=== PATIENT | male | born 1970 | race Caucasian/White ===

== ENCOUNTER → 2019-09-02 | Outpatient (CLI) | payer OTHER ==
[~2019-09-02] MED LIST: HYDR-3165 PO
== END | disposition home or self-care (01) ==
LOC: LAB 14:58
PROVIDERS: ATTEND Orthopaedic Surgery
DX: Z01.818 Encounter for other preprocedural examination (principal); Z11.59 Encounter for screening for other viral diseases; S83.242A Other tear of medial meniscus, current injury, left knee, initial encounter; X58.XXXA Exposure to other specified factors, initial encounter; Y93.89 Activity, other specified; Y92.89 Other specified places as the place of occurrence of the external cause; Y99.8 Other external cause status
CPT/HCPCS: C9803; U0003; 36415

== ENCOUNTER 2019-09-06 06:11 | Day surgery (SDC) | payer OTHER ==
[2019-09-06] MEDS ORDERED: BUPIVACAINE-EPI 0.5%-1:200000 MPF 30 ML VIAL. ONE (06:53)
[2019-09-06] MEDS ORDERED: PROPOFOL 10 MG/ML (20ML) VIAL. IV ONE ×2 (06:58→08:56)
[2019-09-06] MEDS ORDERED: LIDOCAINE 2% PF 5 ML VIAL. ONE (06:58)
[2019-09-06] MEDS ORDERED: MORPHINE SULFATE 2 MG/ML VIAL. IV PRN (07:00)
[2019-09-06] MEDS ORDERED: fentaNYL PF VIAL 100 MCG/2 ML VIAL IV PRN ×2 (07:00)
[2019-09-06] MEDS ORDERED: ONDANSETRON PF 4 MG/2 ML VIAL. IV PRN (07:00)
[2019-09-06] MEDS ORDERED: PROCHLORPERAZINE 10 MG/2 ML VIAL. IV PRN (07:00)
[2019-09-06] MEDS ORDERED: HYDROmorphone 2 MG/ML VIAL IV PRN (07:00)
[2019-09-06] MEDS ORDERED: IV RINGERS,LACTATED 1000ML 1,000 ML IV SCH (07:00)
[2019-09-06] MEDS ORDERED: DEXAMETHASONE SOD PHOS 4 MG/ML VIAL ONE ×2 (07:04→08:08)
[2019-09-06] MEDS ORDERED: fentaNYL PF VIAL 100 MCG/2 ML VIAL ONE (07:04)
[2019-09-06] MEDS ORDERED: MIDAZOLAM HCL/PF 2 MG/2 ML VIAL. ONE (07:04)
[2019-09-06] MEDS ORDERED: ONDANSETRON PF 4 MG/2 ML VIAL. ONE (07:04)
[2019-09-06 07:14] LABS: BASO # 0.1 x10^3/uL (0.0-0.2); BASO % 1 % (0-3); EOS # 0.2 x10^3/uL (0.0-0.7); EOS % 4 % (0-3); HEMATOCRIT 40.2 % (39.0-53.0); HEMOGLOBIN 13.5 g/dL (13.0-17.5); LYMPH # 1.4 x10^3/uL (1.0-4.8); LYMPH % 24 % (24-48); MEAN CORPUSCULAR HEMOGLOBIN 31 pg (25-35); MEAN CORPUSCULAR HGB CONC 34 g/dL (31-37); MEAN CORPUSCULAR VOLUME 91 fL (79-100); MONO # 0.5 x10^3/uL (0.0-1.1); MONO % 9 % (0-9); NEUT # 3.6 x10^3/uL (1.8-7.7); NEUT % 63 % (31-73); PLATELET COUNT 240 x10^3/uL (140-400); RED CELL DISTRIBUTION WIDTH 13.8 % (11.5-14.5); WHITE BLOOD COUNT 5.8 x10^3/uL (4.0-11.0)
[2019-09-06] MEDS ORDERED: HYDR-3165 PO (07:16)
--- NOTE | 2019-09-06 07:18 | DISCH ---
DISCHARGE INSTRUCTIONS Condition on Discharge Condition on Discharge: Stable Activity After Discharge Activity Instructions for Disc: Other, see below (No bending past 90 degrees, twisting pivoting or uneven ground) Weight Bearing Status after Di: As tolerated Diet after Discharge Diet after Discharge: Regular Wound Incision Care Wound/Incision Care: Ice to area for comfort, Change dressing (Remove dressing after 2 days may then shower no soaking until sutures removed) Contacting the DRBeulah after DC Call your doctor for: Concerns you may have Follow-Up Follow up with: Dr. Ramirez 1 week LUCILA RAMIREZ MD Sep 06, 2019 07:18
[2019-09-06 07:27] LABS: CALCIUM 8.6 mg/dL (8.5-10.1); CREATININE 1.1 mg/dL (0.7-1.3); GFR 72.1; POTASSIUM 3.6 mmol/L (3.5-5.1)
[2019-09-06] MEDS ORDERED: ceFAZolin 2GM PREMIX 2 GM/50 ML BAG IV ONE (08:00)
[2019-09-06] MEDS ORDERED: SEVOFLURANE 61 TO 120 MINUTES. IH ONE (08:08)
[2019-09-06] MEDS ORDERED: HYDROcodone/APAP 7.5/325MG 1 TAB TABLET PO ONE (09:00)
[2019-09-06 09:35] VITALS: BP 119/67
--- NOTE | 2019-09-06 17:26 | PDOC4 ---
Operative Note Operative Note Date of surgery: 09/06/2019 Preoperative diagnosis: Medial meniscus tear left knee Postoperative diagnosis: Same with radial tear medial aspect more complex orientation peripherally, medial parapatellar plica Operative procedure: Left knee arthroscopy medial meniscus repair and excision medial parapatellar plica, and injection platelet rich plasma Surgeon: Ashley Anesthesia: General Estimated blood loss: 60 cc (blood draw for platelet rich plasma) Complications: None Operative indications: Please see my orthopedic clinic note for detailed operative indications and note that he has a tear of the medial meniscus otherwise is very active in [employer] and maintains fitness in terms of cycling and other activities and we had talked about preservation of his much as possible of the remaining viable meniscus and the lack of blood supply to the inner rim. 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 All his questions were answered and he does wish to proceed with surgical evaluation and treatment. Operative text: Patient was identified procedure verified patient placed in the supine position on the operating table. After adequate amounts of general anesthesia were administered the left lower extremity was prepped and draped in standard sterile fashion with a thigh tourniquet. After timeout was performed patient procedure identified and verified the left lower extremity was e xsanguinated by Esmarch bandage tourniquet inflated to 300 mmHg a lateral portal was established and a medial portal established using spinal needle localization and the knee joint was systematically examined. He had good patellofemoral tracking and minimal chondromalacia of the patella itself but grade III chondromalacia of the trochlea which did not require debridement and a medial parapatellar plica was noted no loose bodies noted in the gutters or suprapatellar pouch area. He did have a radial tear of the junction of the body and posterior horn of the medial meniscus that extended more to a complex orientation of the tear as it became peripheral. ACL was probed and found to be intact as well as the lateral meniscus. The medial parapatellar plica was excised and the inner rim of the meniscus in the white white zone was radius to more stable viable tissue and the outer joint capsule was trephinated to improve bleeding to the area. Blood was drawn for platelet rich plasma spin down total of 60 cc and a total of 2 jugular stitch meniscal repair devices were placed across the peripheral complex tear and excellent apposition was obtained. The joint was drained of arthroscopic fluid and platelet rich plasma mixture was injected underneath the tendon repair. The superficial portal area only was injected with some half percent plain Marcaine portals closed with nylon suture sterile dressings were applied followed by an Lee wrap toes were noted be warm pink following deflation of the tourniquet patient was returned to recovery room in stable condition having tolerated procedure well LUCILA KIRBY MD Sep 06, 2019 17:25
== END 2019-09-06 10:35 | disposition home or self-care (01) ==
LOC: SURG 06:11
PROVIDERS: ATTEND Orthopaedic Surgery
DX: S83.242A Other tear of medial meniscus, current injury, left knee, initial encounter (principal); M22.42 Chondromalacia patellae, left knee; X58.XXXA Exposure to other specified factors, initial encounter; Y93.89 Activity, other specified; Y92.89 Other specified places as the place of occurrence of the external cause; Y99.8 Other external cause status
CPT/HCPCS: 0232T; 29882; 36415; 80048; 85025; A7015; C1713; J0696; J1100; J2250; J2405; J2704; J3010; J3490; J0690